=== PATIENT | female | born 1965 | race African-American/Black ===

== ENCOUNTER 2017-09-20 04:19 | Emergency (ER) | payer OTHER ==
[~2017-09-20] VITALS: Ht 167.6 cm; Wt 95.0 kg
[~2017-09-20 04:19] MED LIST: AMOX875 PO
[2017-09-20 04:46] VITALS: BP 191/87; PULSE 82; RESP 18; TEMP 98.2; O2SAT 99
[2017-09-20] MEDS ORDERED: BENZ100 PO (05:39)
[2017-09-20] MEDS ORDERED: PRED20 PO (05:39)
[2017-09-20] MEDS ORDERED: ALBUAER3 INH (05:39)
--- NOTE | 2017-09-20 05:43 | PD ---
HPI Chief Complaint: Cold / Flu Symptoms Time Seen by Provider: 05:38 Travel History International Travel<30 days: No Contact w/Intl Traveler<30days: No Traveled to known affect area: No History of Present Illness HPI 52-year-old female presents for evaluation of cough and congestion. Symptoms started 1 week ago. The cough is primarily dry but occasionally productive with clear and yellow sputum. The cough is worse at night. She tried using TheraFlu this morning but symptoms persist which prompted evaluation. Denies fevers, chills, ear pain, rash, recent travel. Denies history of asthma, COPD, tobacco use. She has no other complaints at this time. PFS Past Medical History Medical History: Denies Significant Hx Diminished Hearing: No Integumentary: Yes (RASH ON ARMS FOR MONTHS) Immunizations Current: Yes ?: Not : 1 Para: 1 Past Surgical History Cholecystectomy: Yes Social History Alcohol Use: No Tobacco Use: No Substance Use: No Allergies-Medications (Allergen,Severity, Reaction): Coded Allergies: No Known Allergies (Verified Adverse Reaction, Unknown, 09/20/17) Reported Meds & Prescriptions Reported Meds & Active Scripts Active Proair Hfa 8.5 GM Inh (Albuterol Sulfate) 90 Mcg/Act Aer 2 Puff INH Q4-6H PRN 108 mcg/actuation Prednisone 20 Mg Tab 20 Mg PO BID 5 Days Tessalon Perles (Benzonatate) 100 Mg Cap 200 Mg PO TID PRN Amoxicillin 875 Mg Tab 875 Mg PO BID 10 Days Review of Systems Except as stated in HPI: all other systems reviewed are Neg Physical Exam Narrative GENERAL: Well-developed well-nourished female who has an occasional dry cough during examination. SKIN: Warm and dry. HEAD: Atraumatic. Normocephalic. EYES: Pupils equal and round. No scleral icterus. No injection or drainage. ENT: No nasal bleeding or discharge. Mucous membranes pink and moist. NECK: Trachea midline. No JVD. CARDIOVASCULAR: Regular rate and rhythm. No murmur appreciated. RESPIRATORY: No accessory muscle use. Faint wheezing bilaterally. No crackles. GASTROINTESTINAL: Abdomen soft, non-tender, nondistended. Hepatic and splenic margins not palpable. Data Data Last Documented VS Vital Signs Date Time Temp Pulse Resp B/P (MAP) Pulse Ox O2 Delivery O2 Flow Rate FiO2 09/20/17 04:46 98.2 82 18 191/87 (121) 99 Orders Orders Lidocaine Pf 2% Neb (Lidocaine Pf 2% Neb (09/20/17 05:45) Albuterol-Ipratropium Neb (Duoneb Neb) (09/20/17 05:45) Prednisone (Deltasone) (09/20/17 05:45) MDM Medical Decision Making Medical Screen Exam Complete: Yes Emergency Medical Condition: Yes Medical Record Reviewed: Yes Differential Diagnosis Bronchitis, reactive airway disease, pneumonia, influenza, rhinosinusitis Narrative Course The patient appears to have a viral bronchitis. She will be treated with short course of albuterol inhaler, prednisone, Tessalon. She will be given a DuoNeb and nebulized lidocaine prior to discharge. Diagnosis Primary Impression: Bronchitis Additional Instructions: Medication as prescribed. Stay well hydrated and well-nourished. Cover mouth and coughing. Return for any emergent medical conditions. Med/Other Pt SpecificInfo: Prescription(s) given Scripts Albuterol 8.5 GM Inh (Proair Hfa 8.5 GM Inh) 90 Mcg/Act Aer 2 PUFF INH Q4-6H Y for SHORTNESS OF BREATH, #1 INHALER 0 Refills 108 mcg/actuation Prov: Kolby Simon MD 09/20/17 Prednisone (Prednisone) 20 Mg Tab 20 MG PO BID for 5 Days, #10 TAB 0 Refills Prov: Kolby Simon MD 09/20/17 Benzonatate (Tessalon Perles) 100 Mg Cap 200 MG PO TID Y for COUGH, #30 CAP 0 Refills Prov: Kolby Simon MD 09/20/17 Disposition: 01 DISCHARGE HOME Condition: Stable Ken Dillard Sep 20, 2017 05:43
[2017-09-20] MEDS ORDERED: RESP: LIDOCAINE HCL 2% 2 ML NEB NEB ONE (05:45)
[2017-09-20] MEDS ORDERED: predniSONE 20 MG TAB PO ONE (05:45)
[2017-09-20] MEDS ORDERED: RESP: ALBUTEROL 2.5 MG/IPRATROPIUM 0.5 MG NEB (SCH) INH ONE (05:45)
[2017-09-20 06:26] VITALS: O2SAT 99
== END 2017-09-20 06:39 | disposition home or self-care (01) ==
LOC: NEPD 04:19
DX: J20.8 Acute bronchitis due to other specified organisms (principal)
CPT/HCPCS: 94664; 99283; J7512